=== PATIENT | male | born 1985 | race Caucasian/White ===

== ENCOUNTER 2016-06-11 13:29 | Emergency (ER) | payer MEDICAID ==
[2016-06-11] MEDS ORDERED: NAPROXEN 250 MG TABLET PO ONE (13:46)
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
[2016-06-11 16:26] VITALS: BP 154/90
== END 2016-06-11 16:24 | disposition home or self-care (01) ==
LOC: ER 13:29
DX: S20.222A Contusion of left back wall of thorax, initial encounter (principal); M79.602 Pain in left arm; Y04.0XXA Assault by unarmed brawl or fight, initial encounter
CPT/HCPCS: 99283; 73030; J3490